=== PATIENT | male | born 1940 | race Caucasian/White ===

== ENCOUNTER 2018-03-26 07:50 | Day surgery (SDC) | payer MEDICARE ==
[~2018-03-26] VITALS: Ht 182.9 cm; Wt 66.1 kg
[2018-03-26] MEDS ORDERED: IOHEXOL 350 MG/ML 50 ML BTL (for Cath Lab) OTHER ONE (07:51)
[2018-03-26 08:53] VITALS: BP 164/109; PULSE 83; RESP 18; TEMP 97.9; O2SAT 96
[2018-03-26] MEDS ORDERED: AMLO2.5T PO (08:56)
[2018-03-26] MEDS ORDERED: ASPI-516 CHEW (08:56)
[2018-03-26] MEDS ORDERED: ATOR10TA15 PO (08:56)
[2018-03-26] MEDS ORDERED: IRBE300T11 PO (08:56)
[2018-03-26 09:07] LABS: AUTOMATED NEUTROPHIL # 2.2 TH/MM3 (1.8-7.7); BASOPHIL % 1.1 % (0.0-2.0); EOSINOPHIL % 0.9 % (0.0-4.0); HEMATOCRIT 29.1 % (39.0-51.0); HEMOGLOBIN 8.6 GM/DL (13.0-17.0); LYMPH % 31.1 % (9.0-44.0); LYMPHOCYTE # 1.2 TH/MM3 (1.0-4.8); MEAN CELL VOLUME 65.4 FL (80.0-100.0); MEAN CORPUSCULAR HEMOGLOBIN 19.4 PG (27.0-34.0); MEAN PLATELET VOLUME 8.4 FL (7.0-11.0); MONO % 12.2 % (0.0-8.0); MONOCYTE # 0.5 TH/MM3 (0-0.9); NEUT % 54.7 % (16.0-70.0); PLATELET COUNT 175 TH/MM3 (150-450); RED BLOOD COUNT 4.45 MIL/MM3 (4.50-5.90); RED CELL DISTRIBUTION WIDTH 22.4 % (11.6-17.2)
[2018-03-26 09:14] LABS: MEAN CORPUSCULAR HGB CONC 29.6 % (32.0-36.0)
[2018-03-26 09:15] LABS: INTERNATIONAL NORMALIZED RATIO 1.2 RATIO; PROTHROMBIN TIME - PATIENT 11.8 SEC (9.8-11.6)
[2018-03-26] MEDS ORDERED: HEPARIN-NS/PF INJ 1,000 ML ONE (09:17)
[2018-03-26] MEDS ORDERED: VERAPAMIL HCL 5 MG/2 ML VIAL ONE (09:17)
[2018-03-26] MEDS ORDERED: HEPARIN SODIUM - IV 10,000 UNITS/10 ML VIAL ONE (09:18)
[2018-03-26] MEDS ORDERED: NITROGLYCERIN INJ 5 ML ONE (09:19)
[2018-03-26 09:22] LABS: BICARBONATE 26.4 MEQ/L (21.0-32.0); CALCIUM 8.7 MG/DL (8.5-10.1); CREATININE 0.92 MG/DL (0.60-1.30)
[2018-03-26] MEDS ORDERED: MIDAZOLAM HCL 2 MG/2 ML VIAL ONE (09:31)
--- NOTE | 2018-03-26 12:20 | PD.CAR.PN ---
CVT Progress Note Subjective/Hospital Course: pt seen and evaluated , full consult dictated sts data discussed with pt RISK SCORES About the STS Risk Calculator Procedure: MV Replacement Only Risk of Mortality: 2.502% Morbidity or Mortality: 20.216% Long Length of Stay: 10.352% Short Length of Stay: 26.403% Permanent Stroke: 2.722% Prolonged Ventilation: 12.658% DSW Infection: 0.233% Renal Failure: 4.738% Reoperation: 11.184% Objective: Vital Signs Date Time Temp Pulse Resp B/P (MAP) Pulse Ox O2 Delivery O2 Flow Rate FiO2 03/26/18 08:53 97.9 83 18 164/109 (127) 96 Labs: Laboratory Tests Test 03/26/18 08:50 White Blood Count 4.0 TH/MM3 (4.0-11.0) Red Blood Count 4.45 MIL/MM3 (4.50-5.90) Hemoglobin 8.6 GM/DL (13.0-17.0) Hematocrit 29.1 % (39.0-51.0) Mean Corpuscular Volume 65.4 FL (80.0-100.0) Mean Corpuscular Hemoglobin 19.4 PG (27.0-34.0) Mean Corpuscular Hemoglobin Concent 29.6 % (32.0-36.0) Red Cell Distribution Width 22.4 % (11.6-17.2) Platelet Count 175 TH/MM3 (150-450) Mean Platelet Volume 8.4 FL (7.0-11.0) Neutrophils (%) (Auto) 54.7 % (16.0-70.0) Lymphocytes (%) (Auto) 31.1 % (9.0-44.0) Monocytes (%) (Auto) 12.2 % (0.0-8.0) Eosinophils (%) (Auto) 0.9 % (0.0-4.0) Basophils (%) (Auto) 1.1 % (0.0-2.0) Neutrophils # (Auto) 2.2 TH/MM3 (1.8-7.7) Lymphocytes # (Auto) 1.2 TH/MM3 (1.0-4.8) Monocytes # (Auto) 0.5 TH/MM3 (0-0.9) Eosinophils # (Auto) 0.0 TH/MM3 (0-0.4) Basophils # (Auto) 0.0 TH/MM3 (0-0.2) CBC Comment DIFF FINAL Differential Comment Prothrombin Time 11.8 SEC (9.8-11.6) Prothromb Time International Ratio 1.2 RATIO Activated Partial Thromboplast Time 24.8 SEC (24.3-30.1) Blood Urea Nitrogen 13 MG/DL (7-18) Creatinine 0.92 MG/DL (0.60-1.30) Random Glucose 97 MG/DL (74-106) Calcium Level 8.7 MG/DL (8.5-10.1) Sodium Level 144 MEQ/L (136-145) Potassium Level 3.7 MEQ/L (3.5-5.1) Chloride Level 109 MEQ/L (98-107) Carbon Dioxide Level 26.4 MEQ/L (21.0-32.0) Anion Gap 9 MEQ/L (5-15) Estimat Glomerular Filtration Rate 80 ML/MIN (>89) Result Diagram: 03/26/18 0850 03/26/18 0850 Sruthi Chua March 26, 2018 12:20
--- NOTE | 2018-03-26 12:35 | MB ---
cc: Sruthi Chua Cary H MD DATE: 03/26/2018 HISTORY OF PRESENT ILLNESS: This is a very pleasant, 77-year-old male patient of Dr. Jarod Rojas and Dr. Keen with a history of mitral valve regurgitation. He recently had some symptoms back in December where he felt very short of breath with exertion working outside or doing minimal activity. He underwent echocardiogram on 03/17/2018 which showed an ejection fraction of 72%. He had trivial aortic insufficiency, moderate to severe regurgitation with an eccentric jet in the mitral valve, tricuspid valve had some trivial regurgitation. He underwent cardiac catheterization today for further evaluation which showed nonocclusive coronary disease with an EF of 70%. He also had a CTA of the chest due to the shortness of breath. The CTA was done on 03/05/2018 which showed some atherosclerotic calcification through the coronary disease. No significant stenosis. EF on the CTA was 56%. There was mild dilation of the ascending thoracic aorta measuring 38 mm. The aortic root measured 38 mm as well. There was also some enlargement of the left ventricle and left atrium and small bilateral effusions. We were consulted to evaluate for mitral valve replacement. PAST MEDICAL HISTORY: Includes a history of obstructive sleep apnea. 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 PAST SURGICAL HISTORY: Include right knee replacement. 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 ALLERGIES: No known allergies. HOME MEDICATIONS: 1. Aspirin 81 mg. 2. Atorvastatin 10 mg. 3. Irbesartan 300 p.o. daily. 4. Amlodipine 2.5 daily. FAMILY HISTORY: Mother from stomach cancer. Father at 54 from heart disease. SOCIAL HISTORY: The patient is and has 2 children. Smoked for approximately 30 years, quit in 1987. Has a glass of wine at night. 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 REVIEW OF SYSTEMS: GENERAL: No night sweats, fever, heat and cold intolerance. SKIN: No psoriasis itching or hives. HEENT: No blurred vision or hearing loss. RESPIRATORY: Positive for recent shortness of breath. No cough. CARDIOVASCULAR: No chest pain. No paroxysmal nocturnal dyspnea, no orthopnea, occasional swelling to his lower extremities. GASTROINTESTINAL: No blood in his stools. No constipation or diarrhea. GENITOURINARY: He has had a history of hematuria in the past, some occasional difficulty voiding. 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 ENDOCRINOLOGY: No diabetes or hypothyroidism. PHYSICAL EXAMINATION: VITAL SIGNS: Blood pressure 160/100, heart rate of 80, temperature T-max 97.9. GENERAL: The patient is awake and alert in no acute distress. HEENT: Head is normocephalic, atraumatic. Pupils equal and reactive. Oral mucosa pink, moist. NECK: Supple. No JVD. HEART: Sounds S1, S2. Regular rate and rhythm. He has got a holosystolic mitral regurgitation murmur. LUNGS: Clear to auscultation. No wheezes, rales or rhonchi. ABDOMEN: Soft, nontender, no masses or organomegaly. EXTREMITIES: Reveal a brace to his left lower extremity. He is a left below the ankle amputee with a prosthetic device for the foot. The right leg has good distal pulses. SKIN: No rashes or lesions. LABORATORY DATA: Shows hemoglobin of 8.6 with a hematocrit of 29. He recently had blood work back on 12/23/2017 which at that time showed a hemoglobin of 15 with a hematocrit of 45. I will recheck a hemoglobin at this time. The platelet count was 197. Platelet count is now showing 175. White cell count of 4, prior white cell count was 4.7. Sodium 144, potassium 3.7, BUN of 13, creatinine 0.92, INR 1.2. IMPRESSION: This is a very pleasant 77-year-old male with a history of mitral valve regurgitation, moderate to severe with a flail leaflet. Catheterization is showing nonobstructive coronary disease, normal ejection fraction. The cardiac films and echo will be evaluated by Dr. Tamiko Jacob and decision on a traditional sternotomy approach versus minimally invasive approach for mitral valve replacement. However, in the meantime, the patient has got some significant anemia that needs to be worked up. We will recheck a hemoglobin to make sure this is the correct patient. He has a CTA which is available. Further labs and radiological exams are pending. RUI Mejia MD JRT/DL , 11:58 AM , 12:34 PM
--- NOTE | 2018-03-26 13:33 | RADRPT ---
EXAM DATE/TIME: 03/26/2018 12:32 [facility] COMPARISON: No previous studies available for comparison. INDICATIONS : Preop mitral valve replacement. MEDICAL HISTORY : Congestive heart failure. Peripheral vascular disease. Carcinoma, prostate. Edema. HTN. Sleep apnea. SOB. SURGICAL HISTORY : None. ENCOUNTER: Initial ACUITY: 1 day PAIN SCORE: 0/10 LOCATION: Bilateral neck PEAK SYSTOLIC VELOCITIES (cm/sec): ICA/CCA RATIO: Right: 0.7 Left: 0.8 ICA: Right: 53.0 Left: 60.8 CCA: Right: 73.2 Left: 78.7 ECA: Right: 67.0 Left: 31.2 VERTEBRAL: Right: 55.6 antegrade Left: 39.2 antegrade Elevated flow velocities and ICA/CCA ratios have been found to correlate with increased degrees of vessel stenosis, calculated as percentage of diameter relative to a normal segment of distal ICA/CCA FINDINGS: RIGHT CAROTID: No significant stenosis is visualized. The waveforms are within normal limits. LEFT CAROTID: No significant stenosis is visualized. The waveforms are within normal limits. VERTEBRAL ARTERIES: Antegrade flow is seen in both vertebral arteries. MISCELLANEOUS: None. CONCLUSION: 1. No significant carotid flow-limiting stenosis. 2. Antegrade vertebral artery flow bilaterally. Roberto Tang MD on March 26, 2018 at 13:30 Board Certified Radiologist. This report was verified electronically.
[2018-03-26 14:00] LABS: HEMOGLOBIN A1C 5.5 % (4.3-6.0)
[2018-03-26 14:36] LABS: HEMATOCRIT 28.6 % (39.0-51.0); HEMOGLOBIN 8.5 GM/DL (13.0-17.0)
--- NOTE | 2018-03-26 14:55 | RADRPT ---
EXAM DATE/TIME: 03/26/2018 14:35 [facility] COMPARISON: No previous studies available for comparison. INDICATIONS : Evaluate for pneumonia, pneumothorax or communicable disease. Pre-op for a mitral valve replacement. MEDICAL HISTORY : Hypertension. Congestive heart failure. Carcinoma, prostatic. SURGICAL HISTORY : None. ENCOUNTER: Initial ACUITY: 1 day PAIN SCORE: 0/10 LOCATION: Bilateral chest FINDINGS: PA and lateral views of the chest demonstrate the lungs to be symmetrically aerated without evidence of mass, infiltrate or effusion. The cardiomediastinal contours are unremarkable. Osseous structure s are intact. CONCLUSION: 1. No acute cardiopulmonary findings. Peter Wellington MD on March 26, 2018 at 14:52 Board Certified Radiologist. This report was verified electronically.
--- NOTE | 2018-03-27 01:15 | MA ---
cc: Bao Lincoln DO DATE: 03/26/2018 DATE OF PROCEDURE: 03/26/2018. PROCEDURES: Left heart catheterization, right heart catheterization, coronary angiogram, ultrasound-guided access. PREOPERATIVE DIAGNOSIS: Severe mitral regurgitation with flail leaflet. POSTOPERATIVE DIAGNOSES: Symptomatic severe mitral regurgitation with flail leaflet, mild coronary artery disease. MEDICATIONS: Fentanyl 50 mcg, nitro 200 mcg, verapamil 2.5 mg, heparin 2600 units. CONTRAST USED: 40 mL. FLUOROSCOPY: 2.9 minutes. MODERATE SEDATION: 0 minutes. FRAILTY SCORE: 3. ESTIMATED BLOOD LOSS: 10 mL. PROCEDURAL SUMMARY: Ethan Blackburn is a pleasant 77-year-old male who sees my partner, Dr. Keen, in the office and was found to have increasing shortness of breath and fatigue, and so an echo was done and he was found to have severe mitral regurgitation with a flail leaflet. Because of this, he was recommended cardiac catheterization in anticipation of cardiothoracic surgery. Risks, benefits and alternatives were explained to him and he consented to such. He was brought to the lab and prepped in the usual sterile fashion. The right radial artery was accessed using modified Seldinger technique and placement of a 5/6-Vietnamese slender sheath. Right brachial vein was accessed using modified Seldinger technique, with ultrasound guidance and placement of a 5/6-Vietnamese slender sheath. Both were easily aspirated and flushed. A [place]Saritha catheter was advanced to a wedge position, and oxygen saturations as well as pressures were done in a standard fashion upon pullback throughout the heart. Saint Jo-Saritha catheter was removed. A JR4 was advanced over a J-wire to the ascending aorta and across the aortic valve for measurement of left ventricular pressure. This was pulled back across the aortic valve, showing no significant gradient of aortic stenosis. JR4 was used for selective angiography of the right coronary artery system. This was exchanged out for a JL3.5, which was used for selective angiography of the left coronary artery system. JL3.5 was removed over a J-wire. A radial band was placed over the arteriotomy site for hemostasis. Right brachial vein sheath was removed, with pressure held for hemostasis. 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 FINDINGS: LEFT MAIN: Overall short vessel with 10% disease. It trifurcates into an LAD, ramus and circumflex. LEFT ANTERIOR DESCENDING: Normal-sized vessel with 10% disease noted in the proximal portion and 20% disease noted in the mid to distal portion. It gives off 2 diagonals, the first being overall small and the second one being a larger one with no significant disease. RAMUS: Moderate-sized vessel with mild luminal irregularities. LEFT CIRCUMFLEX: Moderate-sized vessel. It has a 20% lesion in the mid portion. It gives off 2 obtuse marginals, the first being relatively proximal with no significant disease and the second being overall small vessel with diffuse 30% disease. RIGHT CORONARY ARTERY: Normal-sized vessel. Anterior takeoff. Mild luminal irregularity throughout the proximal and mid portion. Distally, it supplies the PDA with no disease: HEMODYNAMICS: RA 3. RV 28/3, RVEDP 5. PA 26/8, mean PA 16. Wedge 10. LVEDP 9. IMPRESSION: 1. Symptomatic severe mitral regurgitation with flail leaflet by echocardiogram. 2. Mild coronary artery disease as above. RECOMMENDATIONS: 1. Mr. Blackburn appears to have mild coronary artery disease with no vessels needing bypassed at the time of cardiothoracic surgery. 2. He will be seen by Dr. Keller for consideration of mini mitral valve versus traditional open surgery. 3. The patient will be discharged home and come back electively for surgery. Thank you for allowing me to see Ethan Blackburn. If there are any questions, please do not hesitate to call. DO CHRIST Waddell/MAURICE , 11:45 PM , 01:14 AM
--- NOTE | 2018-03-27 14:20 | EKG ---
Date Performed: 03/26/2018 Time Performed: 09:01:20 PTAGE: 77 years EKG: Sinus rhythm . Normal ECG NO PREVIOUS TRACING DOCTOR: Aditya Ny Interpretating Date/Time 03/27/2018 14:18:27
== END 2018-03-26 15:35 | disposition home or self-care (01) ==
LOC: HDIC 07:50 → HDOC 07:50
PROVIDERS: ATTEND Nuclear Medicine Nuclear Cardiology
DX: I34.0 Nonrheumatic mitral (valve) insufficiency (principal); I25.10 Atherosclerotic heart disease of native coronary artery without angina pectoris; I11.0 Hypertensive heart disease with heart failure; I50.9 Heart failure, unspecified; E78.5 Hyperlipidemia, unspecified; I73.9 Peripheral vascular disease, unspecified; G47.30 Sleep apnea, unspecified; Z79.82 Long term (current) use of aspirin; Z01.818 Encounter for other preprocedural examination; Z85.46 Personal history of malignant neoplasm of prostate
CPT/HCPCS: 71046; 80048; 82810; 83036; 85002; 85014; 85018; 85025; 85610; 85730; 86850; 86900; 86901; 87641; 93005; 93460; 93880; 94010; 99152; 99153; C1769; C1893; J1644; J2250; J3010; Q9967

== ENCOUNTER → 2018-03-31 | Outpatient (CLI) | payer MEDICARE ==
[~2018-03-31] MED LIST: AMLO2.5T PO; ASPI-516 CHEW; ATOR10TA15 PO; IOHEXOL 350 MG/ML 10 ML VIAL (for RAD DIAG) IVCONTRAST ONE; IRBE300T11 PO
--- NOTE | 2018-03-31 13:52 | RADRPT ---
EXAM DATE: 03/31/2018 1:01 PM EDT AGE/SEX: 77 years / Male INDICATIONS: Aortic stenosis, pre Trans Aortic Valve Replacement. CLINICAL DATA: This is the patient's initial encounter. Patient reports that signs and symptoms have been present for 1 day and indicates a pain score of 0/10. MEDICAL/SURGICAL HISTORY: Cardiovascular disease. Hypertension. Congestive heart failure. prosta te cancer. None. RADIATION DOSE: 11.98 CTDI (mGy) COMPARISON: No prior [facility] exams available for comparison. TECHNIQUE: Volumetric scanning was performed using a multi-row detector CT scanner during bolus infu yousuf of 100 ml Omnipaque 350 (iohexol) nonionic water-soluble contrast as a single exam dose. The d [place] was post processed with a variety of visualization algorithms including full volume maximum inten sity projection, multi-planar sliding thin slab reformation, curved planar reformation, and surface r endering techniques. Using automated exposure control and adjustment of the mA and/or kV according t o patient size, radiation dose was kept as low as reasonably achievable to obtain optimal diagnostic quality images. FINDINGS: CARDIAC: Coronary dominance cannot be determined on this scan. Atherosclerotic calcification is ident ified in the coronary arteries. There is no pericardial effusion AORTIC ROOT/VALVE: February cusps are evident with no calcifications. The aortic root measures 4.1 cm. Mid thoracic aorta measures 3.7 with no calcifications. THORACIC AORTA: The thoracic aortic root is normal with normal branching of the great vessels. Ther e is no evidence of aneurysm or dissection. ABDOMINAL AORTA: The aorta is normal in caliber without aneurysm or dissection. The single right wi th a main and accessory left renal artery. 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 The proximal celiac and superior mesenteric arteries are patent and normal in diameter. CELIAC ARTERY: Celiac artery is widely patent. SMA: Superior mesenteric artery is widely patent. RIGHT RENAL ARTERY: Right renal artery is widely patent. A 8.8 mm fusiform aneurysm in the renal hil um. LEFT RENAL ARTERY: Left renal artery is widely patent. RIGHT COMMON ILIAC: No evidence of aneurysm, mural thrombus, dissection, mural calcification, or johnnie nosis. The common femoral measures 11 mm. LEFT COMMON ILIAC: No evidence of aneurysm, mural thrombus, dissection, mural calcification, or sten osis. The common femoral measures 8.6 mm. THORAX: Multiple probable follicular cysts in the left lobe of the thyroid. 1.6 cm mildly thick-wall ed cyst in the lateral aspect of the right upper lobe. Lungs are otherwise clear. ABDOMEN: Bilateral renal cortical cysts. Nonobstructing 4 mm stone in the lower pole collecting syst em of the left kidney. Diverticular disease of the descending colon without diverticulitis PELVIS: . Diverticular disease in the sigmoid colon without diverticulitis. Small right-sided hydroc tiffanie CONCLUSION: 1. Aortic root measures 4.1 cm in diameter. Otherwise, the thoracoabdominal aorta is normal in calib er throughout its length without aneurysmal disease. Three-vessel origin of the arch. Arch vessels ar e patent. 2. 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 Main and accessory left renal artery. All 3 ubaldo l arteries and the mesenteric vessels are all patent. 3. 1.7 cm parenchymal cyst laterally in the right upper lobe which is mildly thick walled. Infection cannot be excluded. Lungs are otherwise clear. 4. Diverticular disease of the descending and sigmoid colon without diverticulitis. 5. Atherosclerotic calcification of the coronary arteries. Electronically signed by: Tarik Mckeon MD 03/31/2018 1:51 PM EDT
== END ==
LOC: HRAD 08:30
PROVIDERS: ATTEND Thoracic Surgery (Cardiothoracic Vascular Surgery)
DX: I35.0 Nonrheumatic aortic (valve) stenosis (principal); I34.0 Nonrheumatic mitral (valve) insufficiency
CPT/HCPCS: 74174; Q9967

== ENCOUNTER 2018-04-07 05:40 | Inpatient (IN) | payer MEDICARE ==
[~2018-04-07] VITALS: Ht 182.9 cm; Wt 89.0 kg
[~2018-04-07 05:40] MED LIST changes: -IOHEXOL 350 MG/ML 10 ML VIAL (for RAD DIAG) IVCONTRAST ONE
[2018-04-07] MEDS ORDERED: METOPROLOL TARTRATE 25 MG TAB PO PRN (06:15)
[2018-04-07] MEDS ORDERED: DEXTROSE 50% IN WATER 50 ML VIAL(D50) IV PUSH PRN ×2 (06:15→13:30)
[2018-04-07] MEDS ORDERED: CEFAZOLIN 500 MG in NS IRR BTL 500 ML IRRIGATION SCH (06:15)
[2018-04-07] MEDS ORDERED: CHLORHEXIDINE GLUCONATE 4% SOLN 120 ML BTL TOPICAL SCH (06:15)
[2018-04-07] MEDS ORDERED: CHLORHEXIDINE GLUCONATE 2 % 1 PACK (2 CLOTHS) TOPICAL PRN (06:15)
[2018-04-07] MEDS ORDERED: SODIUM CHLORID 0.9% 500 ML IV PRN (06:15)
[2018-04-07] MEDS ORDERED: POVIDONE IODINE 5% (ANTISEPSIS KIT) 4 APPLICATIONS EACH NARE PRN (06:15)
[2018-04-07] MEDS ORDERED: INSULIN REGULAR 100 UNITS in NS 100 ML IV PRN (06:15)
[2018-04-07] MEDS ORDERED: SODIUM CHLORIDE 0.9% FLUSH 10 ML FLUSH IV FLUSH PRN ×3 (06:15→13:30)
[2018-04-07] MEDS ORDERED: LACTATED RINGER'S 1000 ML IV PRN (06:15)
[2018-04-07] MEDS ORDERED: ceFAZolin 2 GM PREMIX 50 ML IV SCH (06:15)
[2018-04-07] MEDS ORDERED: METOPROLOL TARTRATE 25 MG TAB PO SCH (06:15)
[2018-04-07] MEDS ORDERED: ceFAZolin 2 GM PREMIX 50 ML ONE (06:28)
[2018-04-07] MEDS ORDERED: methylPREDNISolone SOD SUCC 125 MG/2 ML VIAL ONE (06:28)
[2018-04-07] MEDS ORDERED: VANCOMYCIN HCL 1000 MG VIAL ONE (06:28)
[2018-04-07] MEDS ORDERED: HEPARIN SODIUM - SQ 10,000 UNITS/ML VIAL ONE (06:28)
[2018-04-07] MEDS ORDERED: BUPIVACAINE HCL PF 0.5% 10 ML VIAL ONE (06:37)
[2018-04-07] MEDS ORDERED: CUSTODIOL HTK IRR SOLN 2,000 ML ONE (07:04)
[2018-04-07] MEDS ORDERED: ALBUMIN 25% INJ 50 ML IV ONE (07:05)
[2018-04-07] MEDS ORDERED: SODIUM BICARBONATE 8.4% INJ 50 MEQ/50 ML SYR ONE (07:05)
[2018-04-07] MEDS ORDERED: HEPARIN SODIUM - IV 10,000 UNITS/10 ML VIAL ONE (07:06)
[2018-04-07] MEDS ORDERED: MANNITOL INJ 100 ML ONE (07:07)
[2018-04-07] MEDS ORDERED: BUPIVACAINE LIPOSO PF 1.3% INJ 20 ML, DEXAMETHASONE INJ 4 MG, MORPHINE INJ 8 MG in SODI... IRRIGATION SCH (10:30)
[2018-04-07] MEDS ORDERED: ceFAZolin INJ 1,000 MG VIAL ONE (11:50)
[2018-04-07] MEDS ORDERED: VECURONIUM BROMIDE 10 MG VIAL IV ONE (12:00)
[2018-04-07] MEDS ORDERED: PHENYLEPHRINE HCL 10 MG/ML VIAL IV ONE (12:00)
[2018-04-07] MEDS ORDERED: PROTAMINE SULFATE 50 MG/5 ML VIAL IV ONE (12:00)
[2018-04-07] MEDS ORDERED: NORMOSOL R INJ 2,000 ML IV ONE (12:00)
[2018-04-07] MEDS ORDERED: SODIUM BICARBONATE 8.4% INJ 50 MEQ/50 ML SYR IV ONE (12:00)
[2018-04-07] MEDS ORDERED: AMINOCAPROIC ACID INJ 250 MG/ML 20 ML VIAL IV ONE (12:00)
[2018-04-07] MEDS ORDERED: LACTATED RINGER'S 1000 ML INJ 1,000 ML IV ONE (12:00)
[2018-04-07] MEDS ORDERED: NEOSTIGMINE METHYLSULFATE 10 MG/10 ML VIAL IV PUSH ONE (12:00)
[2018-04-07] MEDS ORDERED: LIDOCAINE HCL 2% 100 MG/5 ML SYRINGE OTHER ONE (12:00)
[2018-04-07] MEDS ORDERED: ePHEDrine/NS 25 MG/5 ML SYRINGE IV ONE (12:00)
[2018-04-07] MEDS ORDERED: DEXMEDETOMIDINE HCL 200 MCG/2 ML VIAL IV ONE (12:00)
[2018-04-07] MEDS ORDERED: SODIUM CHLOR 0.9% 250 ML INJ 500 ML IV ONE (12:00)
[2018-04-07] MEDS ORDERED: PHENYLEPH/NS 1000 MCG/10 ML SYR IV ONE (12:00)
[2018-04-07] MEDS ORDERED: GLYCOPYRROLATE 0.2 MG/ML VIAL IV ONE (12:00)
[2018-04-07] MEDS ORDERED: HEPARIN SODIUM - SQ 10,000 UNITS/ML VIAL OTHER ONE (12:00)
[2018-04-07] MEDS ORDERED: NS 100 ML (PAB BAG) 200 ML IV ONE (12:00)
[2018-04-07] MEDS ORDERED: CALCIUM CHLORIDE 10% SOLN 1 GRAM/10 ML SYR IV ONE (12:00)
[2018-04-07] MEDS ORDERED: CALCIUM GLUCONATE 10% 1 GM/10 ML VIAL IV ONE (12:00)
[2018-04-07] MEDS ORDERED: MAGNESIUM SULFATE 1 GM/2 ML VIAL IV ONE (12:00)
[2018-04-07] MEDS ORDERED: POTASSIUM CHLORIDE 20 MEQ CONTROLLED RELEASE TAB PO PRN ×2 (13:30)
[2018-04-07] MEDS ORDERED: CLEVIDIPINE INJ 50 ML IV PRN (13:30)
[2018-04-07] MEDS ORDERED: ACETAMINOPHEN 325 MG TAB PO PRN (13:30)
[2018-04-07] MEDS ORDERED: MAGNESIUM SULFATE INJ 2 GM in SODIUM CHLORIDE 0.9% INJ 100 ML IV PRN ×4 (13:30)
[2018-04-07] MEDS ORDERED: DEXMEDETOMIDINE INJ 200 MCG in SODIUM CHLORIDE 0.9% INJ 50 ML IV PRN (13:30)
[2018-04-07] MEDS ORDERED: ACETAMINOPHEN 650 MG SUPP RECTAL PRN (13:30)
[2018-04-07] MEDS ORDERED: CALCIUM CHLORIDE INJ 1 GM in SODIUM CHLORIDE 0.9% INJ 100 ML IV PRN (13:30)
[2018-04-07] MEDS ORDERED: CALCIUM CHLORIDE 10% 1 GRAM/10 ML VIAL IV PUSH PRN (13:30)
[2018-04-07] MEDS ORDERED: Post-op Orders (for Pharmacy) OTHER ONE (13:30)
[2018-04-07] MEDS ORDERED: ALBUMIN 5% INJ 250 ML IV PRN (13:30)
[2018-04-07] MEDS ORDERED: oxyCODONE/ACETAMINOPHEN 5 MG/325 MG TAB PO PRN (13:30)
[2018-04-07] MEDS ORDERED: METOPROLOL TARTRATE 5 MG/5 ML VIAL IV PUSH PRN (13:30)
[2018-04-07] MEDS ORDERED: RESP: RACEPINEPHRINE 2.25% 0.5 ML NEB NEB PRN (13:30)
[2018-04-07] MEDS ORDERED: POTASSIUM CHLOR 20 MEQ PREMIX 100 ML IV PRN ×3 (13:30)
[2018-04-07] MEDS ORDERED: hydrALAZINE HCL 20 MG/ML VIAL IV PUSH PRN (13:30)
[2018-04-07] MEDS ORDERED: RESP: ALBUTEROL 2.5 MG/IPRATROPIUM 0.5 MG NEB (PRN) NEB (13:30)
[2018-04-07] MEDS ORDERED: SODIUM BICARBONATE 8.4% SOLN 50 MEQ/50 ML VIAL IV PUSH PRN ×2 (13:30)
--- NOTE | 2018-04-07 13:42 | PD.OP ---
cc: Tamiko Briscoe MD; Bao Lincoln DO Operative Report Date of Surgery: April 07, 2018 Preoperative Diagnosis: (1) Mitral regurgitation (2) Diastolic CHF Postoperative Diagnosis: same Procedure: Minimally invasive mitral valve repair with a 28 Yono annuloplasty ring Quadrangular resection P2 segment with leaflet reconstruction ANNEL Percutaneous ultrasound guided left femoral and vein cannulation with arterial Perclose closure Anesthesia: Dr. Guadalupe Surgeon: Tamiko Briscoe Shared Services Representative(s): NELSON Guillermo Operation and Findings: Standard monitoring lines and Arias catheter were placed. General anesthesia was induced. The patient was prepped and draped in a sterile fashion. A 6 cm right anterior thoracotomy was performed in the 5th intercostal space laterally. An Denny retractor was placed followed by a small chest retractor. The pericardium was opened and a pericardial sling was created using interrupted 0 silk sutures. A small 1 cm incision was made at the 7th intercostal space and an LV vent CO2 line were placed through this access port. The aorta was dissected posteriorly for crossclamp placement. The left femoral artery and vein were percutaneously accessed using ultrasound guidance. The patient was heparinized for cardiopulmonary bypass. The left femoral artery was cannulated with a 17F [employer] arterial cannula. The left femoral vein was cannulated with a 21 [employer] cannula under ANNEL guidance. Two Perclose devices were placed in the artery for later closure. Antegrade Custodiol cardioplegia was employed. The patient was placed on cardiopulmonary bypass. Waterstons groove was dissected using electrocuatery and blunt dissection. An aortic cross-clamp was applied and the heart was arrested using cold Custodiol cardioplegia delivered through a 14F catheter. The left atrium was opened and the mitral valve was exposed. The valve was analyzed and the posterior leaflet appeared myxomatous with significant prolapse. The P2 segment was excised and the leaflet reconstructed using interrupted 5-0 Ticron suture. The annulus was sized to a 28 [place] Presley Yoon ring. This was seated using interrupted 2-0 Ticron horizontal mattress sutures. The repair was tested and found to be excellent. The left atrium was closed using running 4-0 Prolene suture. Ventricular pacing wires were placed. The patient systemically rewarmed and placed in Trendelenburg position. The cross clamp was removed, with the aorta and LV vented. The patient was easily weaned from cardiopulmonary bypass. Decannulation was carried out without incident and the artery was secured with the Perclose sutures. The vein was controlled with manual compression. Protamine was given. There was no adverse reaction. Intraoperative ANNEL following the procedure showed a good repair with no MR or CONNIE. LV function was preserved. Wound was checked for hemostasis was obtained using electrocautery. A 32F right pleural chest tube was placed and secured to the skin with a 0 silk suture. The rib was approximated to the sternum using a plating system. The pectoralis was closed using a running 0 Vicryl suture. The subcutaneous tissue was closed using a running 3-0 Monocryl suture. The skin was closed with 4-0 Monocryl. Sterile dressings were placed. At the end of the operation, all sponge, instruments, and needle counts were correct. The patient was transferred to the CVICU in stable condition. Tamiko Briscoe MD April 07, 2018 13:42
[2018-04-07] MEDS ORDERED: LACTATED RINGER'S 1000 ML INJ 500 ML IV PRN (14:00)
[2018-04-07] MEDS: AMIODARONE 200 MG TAB PO SCH ×2 (14:00→21:32)
[2018-04-07 14:12] VITALS: BP_SYST 92; BP_SYST 99; BP_DIAS 41; BP_DIAS 62; PULSE 81; RESP 14; TEMP 98.3; O2SAT 97
[2018-04-07] MEDS ORDERED: PILL SPLITTER OTHER PRN (14:15)
[2018-04-07] MEDS ORDERED: fentaNYL CITRATE 250 MCG/5 ML AMP ONE (14:22)
[2018-04-07] MEDS ORDERED: MIDAZOLAM HCL 2 MG/2 ML VIAL ONE (14:22)
[2018-04-07] MEDS: ACETAMINOPHEN 1000 MG/100 ML 100 ML IV SCH ×2 (14:30→19:26)
[2018-04-07] MEDS ORDERED: INSULIN REGULAR (IV INFUSION) 100 UNITS in SODIUM CHLORIDE 0.9% INJ 99 ML IV PRN (14:30)
[2018-04-07 15:00] VITALS: BP_SYST 106; BP_SYST 117; BP_DIAS 61; BP_DIAS 74; PULSE 78; PULSE 85; RESP 16; TEMP 97.9; O2SAT 98
--- NOTE | 2018-04-07 15:13 | RADRPT ---
EXAM DATE: 04/07/2018 3:10 PM EDT AGE/SEX: 77 years / Male INDICATIONS: Status post CABG. CLINICAL DATA: This is the patient's initial encounter. Patient reports that signs and symptoms have been present for 1 day and indicates a pain score of Nonresponsive. MEDICAL/SURGICAL HISTORY: Non-responsive. Non-responsive. COMPARISON: No prior [facility] exams available for comparison. FINDINGS: Right chest tube is in good position. Central line in the right atrium. Moderate bibasilar parenchyma l changes. Mildly prominent cardiac silhouette. No pneumothorax. The portion of the bony skeleton vis ualized is unremarkable. . CONCLUSION: Right chest tube in good position. Negative for pneumothorax. Mild compensated cardiomegaly. Electronically signed by: Coleman Wellington MD 04/07/2018 3:12 PM EDT
[2018-04-07 16:35] VITALS: O2SAT 99
[2018-04-07] MEDS: RESP: ALBUTEROL 2.5 MG/IPRATROPIUM 0.5 MG NEB (SCH) NEB ×2 (16:35→21:00)
[2018-04-07 19:00] VITALS: BP_SYST 112; BP_SYST 119; BP_DIAS 51; BP_DIAS 78; PULSE 86; RESP 18; TEMP 97.9; O2SAT 98
[2018-04-07] MEDS: SODIUM CHLORIDE 0.9% FLUSH 10 ML FLUSH IV FLUSH SCH (21:00)
[2018-04-07 21:01] VITALS: O2SAT 98
[2018-04-07] MEDS: ONDANSETRON HCL 4 MG/2 ML VIAL IV PUSH PRN (22:40)
[2018-04-07 23:00] VITALS: BP_SYST 129; BP_SYST 137; BP_DIAS 54; BP_DIAS 79; PULSE 80; RESP 18; TEMP 98.3; O2SAT 99
[2018-04-08] VITALS (8 sets, daily range): BP systolic 108–132; BP diastolic 50–74; PULSE 74–92; RESP 16–22; TEMP 98–98.8; O2SAT 92–99
[2018-04-08] MEDS: KETOROLAC TROMETHAMINE 30 MG/ML (IVP) VIAL IV PUSH PRN ×3 (01:01→15:52)
[2018-04-08] MEDS: ACETAMINOPHEN 1000 MG/100 ML 100 ML IV SCH ×2 (01:04→08:00)
[2018-04-08] MEDS: ONDANSETRON HCL 4 MG/2 ML VIAL IV PUSH PRN (03:44)
[2018-04-08] MEDS: RESP: ALBUTEROL 2.5 MG/IPRATROPIUM 0.5 MG NEB (SCH) NEB ×3 (03:47→20:21)
[2018-04-08 05:28] LABS: HEMATOCRIT 29.7 % (39.0-51.0); HEMOGLOBIN 8.8 GM/DL (13.0-17.0); MEAN CELL VOLUME 65.7 FL (80.0-100.0); MEAN CORPUSCULAR HEMOGLOBIN 19.6 PG (27.0-34.0); MEAN PLATELET VOLUME 8.6 FL (7.0-11.0); PLATELET COUNT 122 TH/MM3 (150-450); RED BLOOD COUNT 4.52 MIL/MM3 (4.50-5.90); WHITE BLOOD COUNT 10.9 TH/MM3 (4.0-11.0)
[2018-04-08 05:31] LABS: MEAN CORPUSCULAR HGB CONC 29.8 % (32.0-36.0)
[2018-04-08 05:47] LABS: BICARBONATE 23.9 MEQ/L (21.0-32.0); CALCIUM 8.7 MG/DL (8.5-10.1); CREATININE 0.89 MG/DL (0.60-1.30); MAGNESIUM 2.3 MG/DL (1.5-2.5)
[2018-04-08] MEDS: AMIODARONE 200 MG TAB PO SCH ×3 (06:25→22:00)
[2018-04-08] MEDS: PANTOPRAZOLE SOD 40 MG DELAYED RELEASE TAB PO SCH (06:25)
--- NOTE | 2018-04-08 06:53 | RADRPT ---
EXAM DATE: 04/08/2018 6:03 AM EDT AGE/SEX: 77 years / Male INDICATIONS: Mini mitral valve replacement. CLINICAL DATA: This is the patient's subsequent encounter. Patient reports that signs and symptoms h ave been present for 2 days and indicates a pain score of 9/10. MEDICAL/SURGICAL HISTORY: Non-responsive. Chest tube, right. COMPARISON: [facility] [place], 04/07/2018. . FINDINGS: There is improvement in aeration of the lungs with minimal atelectasis remaining in left lung base. R ight IJ line is in place. CONCLUSION: Improvement in aeration of lungs with minimal left lung base atelectasis remaining. Electronically signed by: Too Mejia MD 04/08/2018 6:52 AM EDT
[2018-04-08] MEDS ORDERED: ASPIRIN 81 MG CHEW TAB PO SCH (09:00)
[2018-04-08] MEDS ORDERED: BISACODYL 10 MG SUPP RECTAL PRN (09:15)
[2018-04-08] MEDS ORDERED: GLUCAGON 1 MG/ML VIAL OTHER PRN (09:15)
[2018-04-08] MEDS ORDERED: DEXTROSE 50% IN WATER 50 ML VIAL(D50) IV PUSH PRN (09:15)
[2018-04-08] MEDS: INSULIN ASPART SUPPLEMENTAL SCALE SQ SCH ×4 (10:00→22:00)
[2018-04-08] MEDS: amLODIPine BESYLATE 5 MG TAB PO SCH (10:46)
[2018-04-08] MEDS: SODIUM CHLORIDE 0.9% FLUSH 10 ML FLUSH IV FLUSH SCH ×2 (10:46→21:00)
[2018-04-08] MEDS: ASPIRIN 81 MG CHEW TAB CHEW SCH (10:47)
[2018-04-08] MEDS: ATORVASTATIN 10 MG TAB PO SCH (10:47)
[2018-04-08] MEDS: METOPROLOL TARTRATE 25 MG TAB PO SCH ×2 (10:57→21:00)
[2018-04-08] MEDS: MECLIZINE HCL 25 MG TAB PO PRN (11:06)
[2018-04-08] MEDS: METOCLOPRAMIDE HCL 10 MG/2 ML VIAL IV PUSH SCH ×3 (11:17→22:56)
--- NOTE | 2018-04-08 13:58 | PD.CAR.PN ---
CVT Progress Note Subjective/Hospital Course: 77-year-old male patient of Dr. Jarod Rojas and Dr. Keen with a history of mitral valve regurgitation. Initially seen 03/26/18. He recently had some symptoms back in December where he felt very short of breath with exertion working outside or doing minimal activity. He underwent echocardiogram on 03/17/2018 which showed an ejection fraction of 72%. He had trivial aortic insufficiency, moderate to severe regurgitation with an eccentric jet in the mitral valve, tricuspid valve had some trivial regurgitation. He underwent cardiac catheterization for further evaluation which showed nonocclusive coronary disease with an EF of 70%. We were consulted to evaluate for mitral valve replacement. PAST MEDICAL HISTORY: Includes a history of obstructive sleep apnea. 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 04/07 pt electively admitted for surgery surgery: Minimally invasive mitral valve repair with a 28 [place] annuloplasty ring Quadrangular resection P2 segment with leaflet reconstruction ANNEL Percutaneous ultrasound guided left femoral and vein cannulation with arterial Perclose closure extubated after surgery 2000cc crystalloid, 600cc cell saver 04/08 pt c/o of vertigo when he turns his head, or tries to sit up started on prn Meclizine / reglan scheduled x 3 doses will need coumadin x 6 weeks INR goal 2-2.5 on ASA statin , amiodarone , low dose BB stable for transfer to stepdown Objective: GENERAL: A&O x 3 SKIN: Warm and dry. dressing in place right upper chest wall, left groin dressing in place HEAD: Normocephalic. EYES: No scleral icterus. No injection or drainage. NECK: Supple, trachea midline. No JVD or lymphadenopathy. CARDIOVASCULAR: Regular rate and rhythm without murmurs, gallops, or rubs. RESPIRATORY: Breath sounds equal bilaterally. No accessory muscle use. chest tube wall suction, no air leak / drained 120cc/ 12 hrs GASTROINTESTINAL: Abdomen soft, non-tender, nondistended. MUSCULOSKELETAL: No cyanosis, or edema. BACK: Nontender without obvious deformity. No CVA tenderness. Vital Signs Date Time Temp Pulse Resp B/P (MAP) Pulse Ox O2 Delivery O2 Flow Rate FiO2 04/08/18 12:42 97 Nasal Cannula 3.00 04/08/18 11:00 87 04/08/18 11:00 99 Nasal Cannula 3.00 04/08/18 11:00 98.2 92 16 132/66 (88) 97 Arterial Line 04/08/18 10:47 16 04/08/18 07:30 80 04/08/18 07:30 98.8 84 16 108/70 (83) 97 124/56 (78) 04/08/18 07:30 99 Nasal Cannula 2.00 04/08/18 03:00 82 04/08/18 03:00 98.4 82 22 111/74 (86) 97 116/50 (72) 04/08/18 03:00 97 Nasal Cannula 2.00 04/08/18 01:35 18 04/07/18 23:00 99 Nasal Cannula 2.00 04/07/18 23:00 98.3 80 18 129/79 (96) 99 137/54 (81) 04/07/18 23:00 80 04/07/18 23:00 18 04/07/18 21:01 98 Nasal Cannula 4.00 04/07/18 19:00 98 Nasal Cannula 2.00 04/07/18 19:00 97.9 86 18 119/78 (92) 98 112/51 (71) 04/07/18 19:00 86 04/07/18 16:35 99 Nasal Cannula 4.00 04/07/18 16:15 99 Nasal Cannula 4.00 04/07/18 15:00 97.9 78 16 106/74 (85) 98 117/61 (79) 04/07/18 15:00 85 04/07/18 15:00 99 Simple Mask 6.00 04/07/18 14:12 98.3 81 14 99/62 (74) 97 92/41 (58) 04/07/18 14:12 81 04/07/18 14:12 97 Simple Mask 8.00 Labs: Laboratory Tests Test 04/08/18 04:50 White Blood Count 10.9 TH/MM3 (4.0-11.0) Red Blood Count 4.52 MIL/MM3 (4.50-5.90) Hemoglobin 8.8 GM/DL (13.0-17.0) Hematocrit 29.7 % (39.0-51.0) Mean Corpuscular Volume 65.7 FL (80.0-100.0) Mean Corpuscular Hemoglobin 19.6 PG (27.0-34.0) Mean Corpuscular Hemoglobin Concent 29.8 % (32.0-36.0) Red Cell Distribution Width 23.0 % (11.6-17.2) Platelet Count 122 TH/MM3 (150-450) Mean Platelet Volume 8.6 FL (7.0-11.0) Blood Urea Nitrogen 22 MG/DL (7-18) Creatinine 0.89 MG/DL (0.60-1.30) Random Glucose 116 MG/DL (74-106) Calcium Level 8.7 MG/DL (8.5-10.1) Magnesium Level 2.3 MG/DL (1.5-2.5) Sodium Level 144 MEQ/L (136-145) Potassium Level 3.7 MEQ/L (3.5-5.1) Chloride Level 107 MEQ/L (98-107) Carbon Dioxide Level 23.9 MEQ/L (21.0-32.0) Anion Gap 13 MEQ/L (5-15) Estimat Glomerular Filtration Rate 83 ML/MIN (>89) Result Diagram: 04/08/1844904/08/18449 EKG: NSR qwaves inf leads very subtle change from prior (1) S/P mitral valve repair Plan: ASA, BB amiodarone pulm toileting nebs ezpap OOB ambulate as tolerated (2) Mitral regurgitation (3) Diastolic CHF Plan: EF 70% (4) Hypertension Plan: controlled (5) MICHAEL (obstructive sleep apnea) Plan: CPAP at night (6) Acute post-hemorrhagic anemia Plan: will monitor , gentle diuresis / pt did recieve one unit PRBC 04/07 may need iron supplement Sruthi Chua April 08, 2018 13:58
--- NOTE | 2018-04-08 14:01 | HHI.FF ---
Face to Face Verification Diagnosis: (1) Mitral regurgitation (2) Hypertension (3) MICHAEL (obstructive sleep apnea) (4) Acute post-hemorrhagic anemia (5) Diastolic CHF Home Health Nursing Order: Medication education-adverse effect Wound care and dressing changes Nursing assessment with vital signs Instructions: Heart and Vascular Surgery patients *Special attention to sternal dressing Mandatory frequency Assess and evaluation, 4 days in a row The next week 3X week 2 times a week for 4 weeks 1 time a week for 5 weeks Schedule Heart and Vascular patients for full 60 day certification period Initial visit Review Open Heart Surgery Discharge Instructions (Sternal precautions, Activity, Elastic hose, Incision care, Driving, Incentive spirometry, Smoking, [place], Work and other) Need Betadine to paint incision Medication reconciliation Importance of follow up care/ check on appointments Make calendar record temperature daily When to call [facility] [place] nurse, review instructions, phone list Incentive Spirometry, demonstration Visit 1- Begin discharge instruction for patient family and/ or caregiver using teach back method- Signs and symptoms of infection Disease characteristics Medicines and side effects Foods and nutrition/ appetite Infection control/ hand washing/ hygiene Visit 2- Continue teaching Discharge instructions- include additional information on smoking cessation , sternal dressing (sternal vac) Visit 3- Continue teaching- Cough and deep breathing, incision monitoring. Choose my plate Visit 4- Continue teaching- Discuss limitations Discuss how they are feeling Discuss progress toward goals Remaining visits- continue teaching and monitoring For any questions please call : Thursday 8am-5pm Heart & Vascular Surgery Office ( Dr. Rodgers & Dr. Briscoe), After Hours / Nights (5pm -8am) Weekends and Holidays Please call [facility] ([facility]) Charge Nurse Incentive spirometry Q1 hr x 10, while awake, also use acapella device hourly whole awake xhest wall Bone Precautions: NO pushing or pulling, ( pt must use chest pillow to support chest with all activities and with coughing Daily incision care: ok to shower daily, no tub bath. Wash all incisions with liquid dial soap, clean wash cloth to each site, rinse and pat dry. Observe for any signs of infection, such as drainage which is dark yellow, dean, green or foul smelling. Immediately report to the surgeon any drainage from the chest incision, or legs, and for any abnormal drainage from the chest tube sites. Notify surgeon if any temp >101.5 degrees F. When specialty dressing removed/ or if you do not have one, continue to shower daily as above, then rinse and pat incision dry and paint with betadine daily x 5 days. Allow steri strips to fall off if you have any. Avoid lotions, creams, salves, oils, etc. for the first month For Dr. Briscoe patients , please obtain CBC, BMP, PA & Lat CXR in 2 weeks, results to Dr. Briscoe ( prescription will be given) ( ) (Tele: [phone]) , Valve replacement pts will need 2decho in 2 weeks with results to Dr. Briscoe . Please obtain 2 d echo at your senior behavioral scientist office if possible F/U appointment: as per DC instructions: PCP in 2 weeks, CV surgeon 2 weeks, Eviscerator 3-4 weeks For any questions regarding incisions/ dressing / meds / post op care or above Symptoms, Thursday 8am-5pm Heart & Vascular Surgery Office ( Dr. Rodgers & Dr. Briscoe), After Hours / Nights (5pm -8am) Weekends and Holidays Please call [facility] ([facility]) Charge Nurse I have seen patient Ethan Blackburn on 04/08/18. My clinical findings support the need for the requested home health care services because: Deconditioned w/ increased weakness I certify that my clinical findings support that this patient is homebound because: Post-op weakness (coumadin teaching, coumadin for 6 weeks, Goal 2-2.5) Sruthi Chua April 08, 2018 14:01
[2018-04-08] MEDS: ACETAMINOPHEN/HYDROcodone 325 MG/5 MG TAB PO PRN ×2 (17:47→22:46)
[2018-04-08] MEDS: SENNOSIDES 8.6 MG TAB PO SCH (21:00)
[2018-04-08] MEDS: DOCUSATE SODIUM 100 MG CAP PO SCH (21:00)
[2018-04-09] VITALS (28 sets, daily range): BP systolic 93–110; BP diastolic 55–66; PULSE 70–97; RESP 18–20; TEMP 97.8–98.7; O2SAT 92–97
[2018-04-09] MEDS: INSULIN ASPART SUPPLEMENTAL SCALE SQ SCH ×5 (02:50→21:00)
[2018-04-09] MEDS: ACETAMINOPHEN/HYDROcodone 325 MG/5 MG TAB PO PRN ×5 (04:10→22:18)
[2018-04-09 04:11] LABS: AUTOMATED NEUTROPHIL # 13.3 TH/MM3 (1.8-7.7); BASOPHIL % 0.2 % (0.0-2.0); HEMATOCRIT 27.3 % (39.0-51.0); HEMOGLOBIN 8.1 GM/DL (13.0-17.0); LYMPHOCYTE # 1.3 TH/MM3 (1.0-4.8); MEAN CELL VOLUME 65.6 FL (80.0-100.0); MEAN CORPUSCULAR HEMOGLOBIN 19.5 PG (27.0-34.0); MEAN PLATELET VOLUME 8.3 FL (7.0-11.0); MONO % 8.4 % (0.0-8.0); MONOCYTE # 1.3 TH/MM3 (0-0.9); NEUT % 83.4 % (16.0-70.0); PLATELET COUNT 146 TH/MM3 (150-450); RED BLOOD COUNT 4.16 MIL/MM3 (4.50-5.90); RED CELL DISTRIBUTION WIDTH 23.3 % (11.6-17.2)
[2018-04-09 04:12] LABS: MEAN CORPUSCULAR HGB CONC 29.7 % (32.0-36.0)
[2018-04-09 04:18] LABS: INTERNATIONAL NORMALIZED RATIO 1.3 RATIO; PROTHROMBIN TIME - PATIENT 12.8 SEC (9.8-11.6)
[2018-04-09 04:27] LABS: BICARBONATE 26.6 MEQ/L (21.0-32.0); CALCIUM 8.4 MG/DL (8.5-10.1); CREATININE 1.09 MG/DL (0.60-1.30); MAGNESIUM 2.4 MG/DL (1.5-2.5)
[2018-04-09] MEDS: PANTOPRAZOLE SOD 40 MG DELAYED RELEASE TAB PO SCH (05:41)
[2018-04-09] MEDS: MECLIZINE HCL 25 MG TAB PO PRN (05:41)
[2018-04-09] MEDS: AMIODARONE 200 MG TAB PO SCH ×3 (05:41→21:09)
[2018-04-09] MEDS: RESP: ALBUTEROL 2.5 MG/IPRATROPIUM 0.5 MG NEB (SCH) NEB ×3 (08:00→19:52)
[2018-04-09] MEDS: ATORVASTATIN 10 MG TAB PO SCH (08:29)
[2018-04-09] MEDS: MAGNESIUM HYDROXIDE SUSP 30 ML CUP PO SCH (08:29)
[2018-04-09] MEDS: POLYETHYLENE GLYCOL 17 GM PKG PO SCH (08:29)
[2018-04-09] MEDS: MULTIVITAMINS/MINERALS THERAPEUTIC TAB PO SCH (08:29)
[2018-04-09] MEDS: amLODIPine BESYLATE 5 MG TAB PO SCH (08:29)
[2018-04-09] MEDS: METOPROLOL TARTRATE 25 MG TAB PO SCH ×2 (08:30→21:08)
[2018-04-09] MEDS: DOCUSATE SODIUM 100 MG CAP PO SCH ×2 (08:30→21:08)
[2018-04-09] MEDS: ASPIRIN 81 MG CHEW TAB CHEW SCH (08:30)
[2018-04-09] MEDS: SODIUM CHLORIDE 0.9% FLUSH 10 ML FLUSH IV FLUSH SCH ×2 (08:30→21:00)
--- NOTE | 2018-04-09 13:47 | PD.CAR.PN ---
CVT Progress Note Subjective/Hospital Course: 77-year-old male patient of Dr. Jarod Rojas and Dr. Keen with a history of mitral valve regurgitation. Initially seen 03/26/18. He recently had some symptoms back in December where he felt very short of breath with exertion working outside or doing minimal activity. He underwent echocardiogram on 03/17/2018 which showed an ejection fraction of 72%. He had trivial aortic insufficiency, moderate to severe regurgitation with an eccentric jet in the mitral valve, tricuspid valve had some trivial regurgitation. He underwent cardiac catheterization for further evaluation which showed nonocclusive coronary disease with an EF of 70%. We were consulted to evaluate for mitral valve replacement. PAST MEDICAL HISTORY: Includes a history of obstructive sleep apnea. 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 04/07 pt electively admitted for surgery surgery: Minimally invasive mitral valve repair with a 28 [place] annuloplasty ring Quadrangular resection P2 segment with leaflet reconstruction ANNEL Percutaneous ultrasound guided left femoral and vein cannulation with arterial Perclose closure extubated after surgery 2000cc crystalloid, 600cc cell saver 04/08 pt c/o of vertigo when he turns his head, or tries to sit up started on prn Meclizine / reglan scheduled x 3 doses will need coumadin x 6 weeks INR goal 2-2.5 on ASA statin , amiodarone , low dose BB stable for transfer to stepdown 04/09 pt short run afib , non sustained, continue amiodarone BB start coumadin in am after chest tubes out start iron supplement drained 180cc/ 12 hrs, leave chest tube in Objective: GENERAL: A&O x 3 SKIN: Warm and dry. right upper chest wall incision intact and well approximated / v wires in place HEAD: Normocephalic. EYES: No scleral icterus. No injection or drainage. NECK: Supple, trachea midline. No JVD or lymphadenopathy. CARDIOVASCULAR: Regular rate and rhythm without murmurs, gallops, or rubs. RESPIRATORY: Breath sounds equal bilaterally. No accessory muscle use. chest tube to wall suction, no air leak / drained 180cc/ 12 hrs GASTROINTESTINAL: Abdomen soft, non-tender, nondistended. MUSCULOSKELETAL: No cyanosis, or edema. BACK: Nontender without obvious deformity. No CVA tenderness. Vital Signs Date Time Temp Pulse Resp B/P (MAP) Pulse Ox O2 Delivery O2 Flow Rate FiO2 04/09/18 13:00 77 04/09/18 12:00 75 04/09/18 11:09 98.5 72 18 93/55 (68) 96 04/09/18 11:08 96 Nasal Cannula 1.00 04/09/18 11:00 70 04/09/18 10:00 76 04/09/18 09:00 79 04/09/18 08:00 96 Nasal Cannula 1.00 04/09/18 08:00 81 04/09/18 07:32 98.6 83 18 110/66 (81) 97 04/09/18 07:32 97 Nasal Cannula 1.50 04/09/18 07:00 84 04/09/18 06:47 84 04/09/18 05:21 80 04/09/18 04:35 80 04/09/18 03:40 92 Nasal Cannula 1.50 04/09/18 03:40 97.8 89 19 100/63 (75) 92 04/09/18 03:39 97 04/09/18 02:00 87 04/09/18 01:30 82 04/08/18 23:42 75 04/08/18 23:42 92 Nasal Cannula 1.50 04/08/18 23:42 98.0 86 19 124/73 (90) 92 04/08/18 20:21 96 Nasal Cannula 2.00 04/08/18 19:19 18 04/08/18 19:00 97 Nasal Cannula 2.00 04/08/18 19:00 98.4 75 20 111/74 (86) 97 04/08/18 19:00 75 04/08/18 16:58 16 04/08/18 15:00 99 Nasal Cannula 3.00 04/08/18 15:00 74 04/08/18 15:00 98.5 79 16 111/54 (73) 99 Labs: Laboratory Tests Test 04/09/18 04:00 White Blood Count 16.0 TH/MM3 (4.0-11.0) Red Blood Count 4.16 MIL/MM3 (4.50-5.90) Hemoglobin 8.1 GM/DL (13.0-17.0) Hematocrit 27.3 % (39.0-51.0) Mean Corpuscular Volume 65.6 FL (80.0-100.0) Mean Corpuscular Hemoglobin 19.5 PG (27.0-34.0) Mean Corpuscular Hemoglobin Concent 29.7 % (32.0-36.0) Red Cell Distribution Width 23.3 % (11.6-17.2) Platelet Count 146 TH/MM3 (150-450) Mean Platelet Volume 8.3 FL (7.0-11.0) Neutrophils (%) (Auto) 83.4 % (16.0-70.0) Lymphocytes (%) (Auto) 8.0 % (9.0-44.0) Monocytes (%) (Auto) 8.4 % (0.0-8.0) Eosinophils (%) (Auto) 0.0 % (0.0-4.0) Basophils (%) (Auto) 0.2 % (0.0-2.0) Neutrophils # (Auto) 13.3 TH/MM3 (1.8-7.7) Lymphocytes # (Auto) 1.3 TH/MM3 (1.0-4.8) Monocytes # (Auto) 1.3 TH/MM3 (0-0.9) Eosinophils # (Auto) 0.0 TH/MM3 (0-0.4) Basophils # (Auto) 0.0 TH/MM3 (0-0.2) CBC Comment DIFF FINAL Differential Comment Prothrombin Time 12.8 SEC (9.8-11.6) Prothromb Time International Ratio 1.3 RATIO Blood Urea Nitrogen 29 MG/DL (7-18) Creatinine 1.09 MG/DL (0.60-1.30) Random Glucose 116 MG/DL (74-106) Calcium Level 8.4 MG/DL (8.5-10.1) Magnesium Level 2.4 MG/DL (1.5-2.5) Sodium Level 141 MEQ/L (136-145) Potassium Level 4.2 MEQ/L (3.5-5.1) Chloride Level 105 MEQ/L (98-107) Carbon Dioxide Level 26.6 MEQ/L (21.0-32.0) Anion Gap 9 MEQ/L (5-15) Estimat Glomerular Filtration Rate 66 ML/MIN (>89) Result Diagram: 04/09/18 0400 04/09/18 040 (1) S/P mitral valve repair Plan: ASA, BB amiodarone start coumdin when chest tubes out / goal 2-2.5 pulm toileting nebs ezpap OOB ambulate as tolerated (2) Mitral regurgitation (3) Diastolic CHF Plan: EF 70% (4) Hypertension Plan: controlled (5) MICHAEL (obstructive sleep apnea) Plan: CPAP at night (6) Acute post-hemorrhagic anemia Plan: will monitor , gentle diuresis / pt did recieve one unit PRBC 5/30 HGB 8.1 start po iron supplement Sruthi Chua Apr 09, 2018 13:47
--- NOTE | 2018-04-09 14:59 | EKG ---
Date Performed: 04/08/2018 Time Performed: 08:04:38 PTAGE: 77 years EKG: Sinus rhythm Leftward axis Inferior infarct - age undetermined Abnormal ECG PREVIOUS TRACING : 03/26/2018 09.01 Since the previous tracing, no significant change noted DOCTOR: Bradley Ricci Interpretating Date/Time 04/09/2018 14:56:42
[2018-04-09] MEDS: FERROUS SULFATE 325 MG (65 MG ELEMENTAL IRON) TAB PO SCH (17:00)
[2018-04-09] MEDS: SENNOSIDES 8.6 MG TAB PO SCH (21:08)
[2018-04-10] VITALS (26 sets, daily range): BP systolic 110–137; BP diastolic 70–80; PULSE 71–92; RESP 18; TEMP 97.7–98.9; O2SAT 90–95
[2018-04-10] MEDS: ACETAMINOPHEN/HYDROcodone 325 MG/5 MG TAB PO PRN ×3 (03:36→10:00)
[2018-04-10 03:57] LABS: INTERNATIONAL NORMALIZED RATIO 1.2 RATIO; PROTHROMBIN TIME - PATIENT 11.7 SEC (9.8-11.6)
[2018-04-10] MEDS: PANTOPRAZOLE SOD 40 MG DELAYED RELEASE TAB PO SCH (05:49)
[2018-04-10] MEDS: AMIODARONE 200 MG TAB PO SCH ×3 (05:49→20:54)
[2018-04-10] MEDS: INSULIN ASPART SUPPLEMENTAL SCALE SQ SCH ×3 (08:00→21:00)
[2018-04-10] MEDS: RESP: ALBUTEROL 2.5 MG/IPRATROPIUM 0.5 MG NEB (SCH) NEB ×2 (08:12→13:42)
[2018-04-10] MEDS ORDERED: SOD PHOSPHATE/SOD BIPHOSPHATE (ADULT) ENEMA 133ML RECTAL PRN (09:00)
[2018-04-10] MEDS: SODIUM CHLORIDE 0.9% FLUSH 10 ML FLUSH IV FLUSH SCH ×2 (09:00→20:54)
[2018-04-10] MEDS: ASPIRIN 81 MG CHEW TAB CHEW SCH (09:01)
[2018-04-10] MEDS: DOCUSATE SODIUM 100 MG CAP PO SCH ×2 (09:02→20:54)
[2018-04-10] MEDS: ATORVASTATIN 10 MG TAB PO SCH (09:02)
[2018-04-10] MEDS: MULTIVITAMINS/MINERALS THERAPEUTIC TAB PO SCH (09:02)
[2018-04-10] MEDS: METOPROLOL TARTRATE 25 MG TAB PO SCH ×2 (09:02→20:54)
[2018-04-10] MEDS: MAGNESIUM HYDROXIDE SUSP 30 ML CUP PO SCH (09:03)
[2018-04-10] MEDS: POLYETHYLENE GLYCOL 17 GM PKG PO SCH (09:03)
--- NOTE | 2018-04-10 11:37 | PD.CAR.PN ---
CVT Progress Note CVT: POD #: 3 Subjective/Hospital Course: 77-year-old male patient of Dr. Jarod Rojas and Dr. Keen with a history of mitral valve regurgitation. Initially seen 03/26/18. He recently had some symptoms back in December where he felt very short of breath with exertion working outside or doing minimal activity. He underwent echocardiogram on 03/17/2018 which showed an ejection fraction of 72%. He had trivial aortic insufficiency, moderate to severe regurgitation with an eccentric jet in the mitral valve, tricuspid valve had some trivial regurgitation. He underwent cardiac catheterization for further evaluation which showed nonocclusive coronary disease with an EF of 70%. We were consulted to evaluate for mitral valve replacement. PAST MEDICAL HISTORY: Includes a history of obstructive sleep apnea. 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 04/07 pt electively admitted for surgery surgery: Minimally invasive mitral valve repair with a 28 [place] annuloplasty ring Quadrangular resection P2 segment with leaflet reconstruction ANNEL Percutaneous ultrasound guided left femoral and vein cannulation with arterial Perclose closure extubated after surgery 2000cc crystalloid, 600cc cell saver 04/08 pt c/o of vertigo when he turns his head, or tries to sit up started on prn Meclizine / reglan scheduled x 3 doses will need coumadin x 6 weeks INR goal 2-2.5 on ASA statin , amiodarone , low dose BB stable for transfer to stepdown 04/09 pt short run afib , non sustained, continue amiodarone BB start coumadin in am after chest tubes out start iron supplement drained 180cc/ 12 hrs, leave chest tube in 04/10/18 No complaints. 110ml chest tube output since 6AM Objective: Vital Signs Date Time Temp Pulse Resp B/P (MAP) Pulse Ox O2 Delivery O2 Flow Rate FiO2 04/10/18 11:07 94 Room Air 04/10/18 11:07 71 04/10/18 11:07 97.7 71 18 114/71 (85) 94 04/10/18 08:12 92 21 04/10/18 07:52 91 Room Air 04/10/18 07:52 98.0 84 18 110/70 (83) 91 04/10/18 07:52 84 04/10/18 06:05 84 04/10/18 05:24 79 04/10/18 04:27 78 04/10/18 03:44 97.9 81 18 121/73 (89) 95 04/10/18 03:44 95 Room Air 04/10/18 03:44 81 04/10/18 02:37 82 04/10/18 01:05 85 04/10/18 00:07 83 04/09/18 23:10 92 Nasal Cannula 1.50 04/09/18 23:10 86 04/09/18 23:10 98.0 89 19 100/63 (75) 92 04/09/18 22:39 87 04/09/18 21:58 86 04/09/18 20:10 82 04/09/18 19:52 93 21 04/09/18 19:35 86 04/09/18 19:35 92 Nasal Cannula 04/09/18 19:35 98.7 83 20 107/61 (76) 92 04/09/18 18:00 87 04/09/18 17:00 84 04/09/18 16:00 80 04/09/18 15:29 98.4 81 18 98/59 (72) 95 04/09/18 15:29 96 Nasal Cannula 1.00 04/09/18 15:00 82 04/09/18 14:00 79 04/09/18 13:00 77 04/09/18 12:00 75 Labs: Laboratory Tests Test 04/10/18 03:36 Prothrombin Time 11.7 SEC (9.8-11.6) Prothromb Time International Ratio 1.2 RATIO Result Diagram: 04/09/18 0400 04/09/18 0400 Cardiovascular: RRR Telemetry: NSR Pulmonary: CTA GI/: NABS Incision: dry and intact CT: as above no air leak Plan: Continue chest tube one more day to water seal Encourage ambulation Coumadin, INR Possible d/c in am (1) S/P mitral valve repair Plan: ASA, BB amiodarone start coumdin when chest tubes out / goal 2-2.5 pulm toileting nebs ezpap OOB ambulate as tolerated (2) Mitral regurgitation (3) Diastolic CHF Plan: EF 70% (4) Hypertension Plan: controlled (5) MICHAEL (obstructive sleep apnea) Plan: CPAP at night (6) Acute post-hemorrhagic anemia Plan: will monitor , gentle diuresis / pt did recieve one unit PRBC 5/30 HGB 8.1 start po iron supplement Tamiko Briscoe MD Apr 10, 2018 11:37
[2018-04-10] MEDS: FERROUS SULFATE 325 MG (65 MG ELEMENTAL IRON) TAB PO SCH ×2 (13:25→17:19)
[2018-04-10] MEDS: WARFARIN SOD 5 MG TAB PO SCH (17:21)
[2018-04-10] MEDS: SENNOSIDES 8.6 MG TAB PO SCH (20:54)
[2018-04-11] VITALS (10 sets, daily range): BP systolic 134–147; BP diastolic 64–79; PULSE 68–78; RESP 18; TEMP 98–98.5; O2SAT 96–97
[2018-04-11 03:34] LABS: INTERNATIONAL NORMALIZED RATIO 1.1 RATIO; PROTHROMBIN TIME - PATIENT 11.4 SEC (9.8-11.6)
[2018-04-11] MEDS: AMIODARONE 200 MG TAB PO SCH ×2 (05:03→14:34)
[2018-04-11] MEDS: PANTOPRAZOLE SOD 40 MG DELAYED RELEASE TAB PO SCH (05:03)
[2018-04-11] MEDS: INSULIN ASPART SUPPLEMENTAL SCALE SQ SCH (08:00)
[2018-04-11] MEDS: DOCUSATE SODIUM 100 MG CAP PO SCH (08:51)
[2018-04-11] MEDS: METOPROLOL TARTRATE 25 MG TAB PO SCH (08:51)
[2018-04-11] MEDS: ATORVASTATIN 10 MG TAB PO SCH (08:51)
[2018-04-11] MEDS: ASPIRIN 81 MG CHEW TAB CHEW SCH (08:51)
[2018-04-11] MEDS: MULTIVITAMINS/MINERALS THERAPEUTIC TAB PO SCH (08:51)
[2018-04-11] MEDS: MAGNESIUM HYDROXIDE SUSP 30 ML CUP PO SCH (08:54)
[2018-04-11] MEDS: POLYETHYLENE GLYCOL 17 GM PKG PO SCH (09:00)
[2018-04-11] MEDS: SODIUM CHLORIDE 0.9% FLUSH 10 ML FLUSH IV FLUSH SCH (09:01)
[2018-04-11] MEDS ORDERED: AMIO200T PO (10:08)
[2018-04-11] MEDS ORDERED: THERM PO (10:08)
[2018-04-11] MEDS ORDERED: HYDR-3516 PO (10:08)
[2018-04-11] MEDS ORDERED: PANT40TA3 PO (10:08)
[2018-04-11] MEDS ORDERED: COUM5TAB PO (10:08)
[2018-04-11] MEDS ORDERED: FERR325T20 PO (10:08)
[2018-04-11] MEDS ORDERED: DOCU1CAP39 PO (10:08)
--- NOTE | 2018-04-11 10:13 | HHI.DS ---
Discharge Summary Admission Date April 07, 2018 at 05:40 Discharge Date: Apr 11, 2018 Admitting Diagnosis Mitral regurgitation Diastolic heart failure (1) Diastolic CHF Diagnosis: Principal ICD Codes: I50.30 - Unspecified diastolic (congestive) heart failure (2) Mitral regurgitation Diagnosis: Principal ICD Codes: I34.0 - Nonrheumatic mitral (valve) insufficiency (3) Hypertension Diagnosis: Secondary ICD Codes: I10 - Essential (primary) hypertension Procedures Minimally invasive MV repair Brief History Subjective/Hospital Course: 77-year-old male patient of Dr. Jarod Rojas and Dr. Keen with a history of mitral valve regurgitation. Initially seen 03/26/18. He recently had some symptoms back in December where he felt very short of breath with exertion working outside or doing minimal activity. He underwent echocardiogram on 03/17/2018 which showed an ejection fraction of 72%. He had trivial aortic insufficiency, moderate to severe regurgitation with an eccentric jet in the mitral valve, tricuspid valve had some trivial regurgitation. He underwent cardiac catheterization for further evaluation which showed nonocclusive coronary disease with an EF of 70%. We were consulted to evaluate for mitral valve replacement. PAST MEDICAL HISTORY: Includes a history of obstructive sleep apnea. 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 CBC/BMP: 04/09/18 0400 04/09/18 0400 Significant Findings Laboratory Tests Test 04/09/18 04:00 04/10/18 03:36 04/11/18 03:02 White Blood Count 16.0 TH/MM3 (4.0-11.0) Red Blood Count 4.16 MIL/MM3 (4.50-5.90) Hemoglobin 8.1 GM/DL (13.0-17.0) Hematocrit 27.3 % (39.0-51.0) Mean Corpuscular Volume 65.6 FL (80.0-100.0) Mean Corpuscular Hemoglobin 19.5 PG (27.0-34.0) Mean Corpuscular Hemoglobin Concent 29.7 % (32.0-36.0) Red Cell Distribution Width 23.3 % (11.6-17.2) Platelet Count 146 TH/MM3 (150-450) Neutrophils (%) (Auto) 83.4 % (16.0-70.0) Lymphocytes (%) (Auto) 8.0 % (9.0-44.0) Monocytes (%) (Auto) 8.4 % (0.0-8.0) Neutrophils # (Auto) 13.3 TH/MM3 (1.8-7.7) Monocytes # (Auto) 1.3 TH/MM3 (0-0.9) Prothrombin Time 12.8 SEC (9.8-11.6) 11.7 SEC (9.8-11.6) Blood Urea Nitrogen 29 MG/DL (7-18) Random Glucose 116 MG/DL (74-106) Calcium Level 8.4 MG/DL (8.5-10.1) Estimat Glomerular Filtration Rate 66 ML/MIN (>89) Imaging Last Impressions Chest X-Ray 04/08/18 0500 Signed Impressions: CONCLUSION: Improvement in aeration of lungs with minimal left lung base atelectasis remain ing. PE at Discharge Chest - CTA COR - RRR ABD - NABS, NT wound - dry and intact Hospital Course 04/07 pt electively admitted for surgery surgery: Minimally invasive mitral valve repair with a 28 Yoon annuloplasty ring Quadrangular resection P2 segment with leaflet reconstruction ANNEL Percutaneous ultrasound guided left femoral and vein cannulation with arterial Perclose closure extubated after surgery 2000cc crystalloid, 600cc cell saver 04/08 pt c/o of vertigo when he turns his head, or tries to sit up started on prn Meclizine / reglan scheduled x 3 doses will need coumadin x 6 weeks INR goal 2-2.5 on ASA statin , amiodarone , low dose BB stable for transfer to stepdown 04/09 pt short run afib , non sustained, continue amiodarone BB start coumadin in am after chest tubes out start iron supplement drained 180cc/ 12 hrs, leave chest tube in 04/10/18 No complaints. 110ml chest tube output since 6AM 04/11/18 Chest tube output ~100ml/12hrs Will remove chest tubes and discharge today. INR not therapeutic yet. Will need INR draw on Thursday morning with goal 2-2.5 Pt Condition on Discharge: Good Discharge Disposition: Disch w/ Home Health Serv Discharge Instructions DIET: Follow Instructions for: Heart Healthy Diet Activities you can perform: Weight Bearing as Loraine, Shower Only-No Bath Activities to avoid: Driving Follow up Referrals: Appointment for Follow Up - 3 Weeks Cardiology - 3 Weeks PCP Follow-up - 2 Weeks New Orders: 2D ECHO - 2 Weeks BASIC METABOLIC PROF - 2 Weeks CBC NO DIFF - 2 Weeks PT/INR - 2-3 Days X-RAY CHEST PA & LAT - 2 Weeks New Medications: Amiodarone (Amiodarone) 200 Mg Tab 200 MG PO BID for Regulate Heart Beat, #28 TAB Docusate Sodium (Dok) 100 Mg Cap 100 MG PO BID PRN for CONSTIPATION, #28 CAP Ferrous Sulfate (Ferosul) 325 Mg (65 Mg Iron) Tablet 325 MG PO BID@12,17 for Nutritional Supplement, #60 TAB 1 Refill Hydrocodone/Acetaminophen (Hydrocodone-Acetamin 5-325 mg) 5 Mg-325 Mg Tablet 1 TAB PO Q4H PRN for PAIN SCALE 1 TO 10, #20 TAB Multiple Vitamins W/ Minerals (Thera M Plus) 1 Tab 1 TAB PO DAILY for Nutritional Supplement, #100 TAB Pantoprazole (Pantoprazole) 40 Mg Tab 40 MG PO DAILY@06 for Prevent Stress Ulcers, #28 TAB Warfarin (Coumadin) 5 Mg Tab 5 MG PO DAILY@1600 for Blood Clot Prevention, #30 TAB Continued Medications: Amlodipine (Amlodipine) 2.5 Mg Tab 2.5 MG PO DAILY for Blood Pressure Management, #30 TAB 0 Refills Aspirin (Aspirin) 81 Mg Chew 81 MG CHEW DAILY, TAB 0 Refills Atorvastatin (Atorvastatin) 10 Mg Tab 10 MG PO DAILY for Cholesterol Management, #30 TAB 0 Refills Discontinued Medications: Irbesartan (Irbesartan) 300 Mg Tab 300 MG PO DAILY for Blood Pressure Management, #30 TAB 0 Refills Tamiko Briscoe MD Apr 11, 2018 10:13
[2018-04-11] MEDS: WARFARIN SOD 5 MG TAB PO SCH (14:32)
== END 2018-04-11 14:44 | disposition home or self-care (01) | DRG 220 ==
LOC: HSDI 05:40 → HCVI 13:50 → HCPC 04-08 22:45
PROVIDERS: ADMIT Thoracic Surgery (Cardiothoracic Vascular Surgery); ATTEND Thoracic Surgery (Cardiothoracic Vascular Surgery)
PROC: 5A1221Z Performance of Cardiac Output, Continuous (ICD-10-PCS; 2018-04-07)
PROC: B246ZZ4 Ultrasonography of Right and Left Heart, Transesophageal (ICD-10-PCS; 2018-04-07)
PROC: 30233N1 Transfusion of Nonautologous Red Blood Cells into Peripheral Vein, Percutaneous Approach (ICD-10-PCS; 2018-04-07)
PROC: 02UG0JZ Supplement Mitral Valve with Synthetic Substitute, Open Approach (ICD-10-PCS; principal; 2018-04-07 07:23)
PROC: 02BG0ZZ Excision of Mitral Valve, Open Approach (ICD-10-PCS; 2018-04-07 07:23)
DX: I34.0 Nonrheumatic mitral (valve) insufficiency (principal); I50.30 Unspecified diastolic (congestive) heart failure; I11.0 Hypertensive heart disease with heart failure; Z99.81 Dependence on supplemental oxygen; D62 Acute posthemorrhagic anemia; I48.91 Unspecified atrial fibrillation; G47.33 Obstructive sleep apnea (adult) (pediatric); Z86.73 Personal history of transient ischemic attack (TIA), and cerebral infarction without residual deficits; E78.5 Hyperlipidemia, unspecified; I73.9 Peripheral vascular disease, unspecified; Z85.46 Personal history of malignant neoplasm of prostate; Z87.442 Personal history of urinary calculi; Z87.19 Personal history of other diseases of the digestive system; K21.9 Gastro-esophageal reflux disease without esophagitis; R42 Dizziness and giddiness
CPT/HCPCS: 36430; 71045; 76937; 80048; 82948; 83735; 85025; 85027; 85610; 86850; 86900; 86901; 86920; 88305; 93005; 93318; 94150; 94640; 94664; 94667; 94668; C1713; C1898; C9290; J0131; J0610; J0690; J1100; J1644; J1815; J1817; J1885; J2150; J2250; J2270; J2370; J2405; J2710; J2720; J2765; J2930; J3010; J3370; J3475; J3480; J7050; J7120; P9016; P9045; P9047